=== PATIENT | female | born 1960 ===

== ENCOUNTER 2017-02-27 22:18 | Observation (INO) | payer BC ==
[2017-02-27 22:25] VITALS: RESP 16; O2SAT 99
--- NOTE | 2017-02-27 22:44 | ED PDOC ---
Syncope/Near Syncope/Dizzyness Time Seen by Provider: 02/27/17 22:28 Chief Complaint (Nursing): Dizziness/Lightheaded Chief Complaint (Provider): dizziness History Per: Patient History/Exam Limitations: no limitations Onset/Duration Of Symptoms: Hrs (x 1) Additional Complaint(s): Maricarmen Lomax is a 57 year old female, with a previous medical history of hypertension, hypothyroidism and kidney stones, who presents to the ED with complaints of dizziness secondary to stool falling on his head. Patient states he feels dizzy accompanied by neck pain. Patient reports no loss of consciousness, nausea, vomiting, paresthesia or peripheral neuropathy. PMD: [place] Past Medical History Reviewed: Historical Data, Nursing Documentation, Vital Signs Vital Signs: Last Vital Signs Temp 99.5 F 02/27/17 22:23 Pulse 105 H 02/27/17 22:23 Resp 16 02/27/17 22:23 BP 161/95 H 02/27/17 22:23 Pulse Ox 99 02/27/17 22:23 - Medical History PMH: Gastritis, HTN, Hypercholesterolemia, Hypothyroidism - Surgical History Surgical History: No Surg Hx - Family History Family History: States: Unknown Family Hx - Immunization History Hx Tetanus Toxoid Vaccination: Yes Hx Influenza Vaccination: Yes Hx Pneumococcal Vaccination: Yes - Home Medications Home Medications: Ambulatory Orders Medication Instructions Recorded Ciprofloxacin [Cipro] 500 mg PO BID 02/28/17 Cyclobenzaprine [Flexeril] 5 mg PO TID #20 tab 02/28/17 Dexlansoprazole [Dexilant] 60 mg PO DAILY 02/28/17 Ezetimibe [Zetia] 10 mg PO DAILY 02/28/17 Levothyroxine [Synthroid] 100 mcg PO QAM 02/28/17 Lisinopril [Zestril] 20 mg PO DAILY 02/28/17 Metoprolol Tartrate [Lopressor] 25 mg PO BID 02/28/17 Montelukast [Singulair] 10 mg PO HS 02/28/17 Potassium Citrate [Urocit-K] 15 meq PO BID 02/28/17 amLODIPine [Norvasc] 10 mg PO DAILY 02/28/17 - Allergies Allergies/Adverse Reactions: Allergies Allergy/AdvReac Type Severity Reaction Status Date / Time avocado Allergy RASH Verified 02/27/17 22:23 fosinopril sodium Allergy RASH Verified 02/27/17 22:23 [From Monopril] iron Allergy RASH Verified 02/27/17 22:23 pseudoephedrine HCl Allergy RASH Verified 02/27/17 22:23 [From Sudafed] shrimp Allergy RASH Verified 02/27/17 22:23 Review of Systems ROS Statement: Except As Marked, All Systems Reviewed And Found Negative Gastrointestinal: Negative for: Nausea, Vomiting Musculoskeletal: Positive for: Neck Pain Neurological: Positive for: Dizziness. Negative for: Numbness, Other (tingling ) Psych: Negative for: Other (LOC) Physical Exam - Reviewed Nursing Documentation Reviewed: Yes Vital Signs Reviewed: Yes - Physical Exam Appears: Positive for: Well, Non-toxic, No Acute Distress Head Exam: Positive for: ATRAUMATIC, NORMAL INSPECTION, NORMOCEPHALIC Skin: Positive for: Normal Color, Warm, Dry Eye Exam: Positive for: Normal appearance, EOMI, PERRL. Negative for: Nystagmus Neck: Positive for: Normal, Painless ROM, Supple Cardiovascular/Chest: Positive for: Regular Rate, Rhythm Respiratory: Positive for: CNT, Normal Breath Sounds Back: Positive for: Normal Inspection. Negative for: Vertebral Tenderness Extremity: Positive for: Normal ROM Neurologic/Psych: Positive for: Alert, Oriented (x 3). Negative for: Motor/ Sensory Deficits - Laboratory Results Result Diagrams: 02/28/17 00:59 02/28/17 00:59 - ECG O2 Sat by Pulse Oximetry: 99 (RA) Pulse Ox Interpretation: Normal Medical Decision Making Medical Decision Making: Initial Plan: * CT cervical neck w/o contrast * CT head w/o contrast * reevaluation Scribe Attestation: Documented by Jerica Pedraza, acting as a scribe for Eusebio Johnson MD Provider Scribe Attestation: All medical record entries made by the Scribe were at my direction and personally dictated by me. I have reviewed the chart and agree that the record accurately reflects my personal performance of the history, physical exam, medical decision making, and the department course for this patient. I have also personally directed, reviewed, and agree with the discharge instructions and disposition. Disposition - Clinical Impression Clinical Impression: Dizziness, Head injury - Patient ED Disposition Is Patient to be Admitted: Transfer of Care - Disposition Disposition: Transfer of Care Disposition Time: 15:00 Condition: STABLE Patient Signed Over To: Reji Lopez
--- NOTE | 2017-02-27 23:50 | CT ---
EXAM: CT Head Without Intravenous Contrast CLINICAL HISTORY: 57 years old, female; Injury or trauma; Fall; Initial encounter; Concussion / head injury; Additional info: R/O bleed TECHNIQUE: Axial computed tomography images of the head/brain without intravenous contrast. This CT exam was performed using one or more of the following dose reduction techniques: automated exposure control, adjustment of the mA and/or kV according to patient size, and/or use of iterative reconstruction technique. Coronal and sagittal reformatted images were created and reviewed. COMPARISON: No relevant prior studies available. FINDINGS: Brain: No acute intracranial hemorrhage. No significant white matter disease. No edema. Ventricles: No significant ventriculomegaly. Bones: No acute displaced fracture. Sinuses: Unremarkable as visualized. No acute sinusitis. Mastoid air cells: Unremarkable as visualized. No mastoid effusion. IMPRESSION: No acute intracranial hemorrhage, or suspicious mass effect.
--- NOTE | 2017-02-28 00:15 | ED PDOC ---
- Laboratory Results Result Diagrams: 02/28/17 00:59 02/28/17 00:59 - ECG O2 Sat by Pulse Oximetry: 99 (RA) Medical Decision Making Medical Decision Making: Patient s/o from Dr. Johnson at [address] 2350: CT head impression: No acute intracranial hemorrhage, or suspicious mass effect. 0018: CT c-spine impression: No acute fracture is identified. Odontoid-lateral mass asymmetry is detected, for which dedicated MRI is suggested to exclude a ligamentous injury. Additional finding within the vertebral body of T2, for which dedicated ( nonemergent) contrast enhanced MRI is suggested. Will put patient in c-collar for precaution and ED obs pending MRI in the AM. Will call Andres (head of radiology) stat due to ligamentous injury with possible cervical fracture as per CT. Patient declines Morphine. States it makes her sick. ordered toradol instread 0300 pt sleeping in NAD Patient s/o to Dr. Khoury at 0700 pending MRI. Scribe Attestation: Documented by Guillermo Mercado acting as a scribe for Marisol Eldridge MD. Provider Scribe Attestation: All medical record entries made by the Scribe were at my direction and personally dictated by me. I have reviewed the chart and agree that the record accurately reflects my personal performance of the history, physical exam, medical decision making, and the department course for this patient. I have also personally directed, reviewed, and agree with the discharge instructions and disposition. Disposition - Clinical Impression Clinical Impression: Dizziness - POA Present On Arrival: None - Disposition Disposition: Transfer of Care Disposition Time: 07:00 Condition: STABLE Patient Signed Over To: Damian Khoury Handoff Comments: pending MRI ED OBSERVATION Date of observation admission: 02/28/17 Time of observation admission: 00:23 - Observation admission statement Patient is being placed in observation because:: pending MRI in AM
--- NOTE | 2017-02-28 00:18 | CT ---
EXAM: CT Cervical Spine Without Intravenous Contrast CLINICAL HISTORY: 57 years old, female; Injury or trauma; Fall; Initial encounter; Concussion /head injury TECHNIQUE: Axial computed tomography images of the cervical spine without intravenous contrast. This CT exam was performed using one or more of the following dose reduction techniques: automated exposure control, adjustment of the mA and/or kV according to patient size, and/or use of iterative reconstruction technique. Coronal and sagittal reformatted images were created and reviewed. COMPARISON: No relevant prior studies available. FINDINGS: Vertebrae: No acute fracture. Odontoid-lateral mass asymmetry. Within the posterior column of the T2 vertebral body, to the left of midline is a subcentimeter focus of decreased attenuation. No additional lytic or blastic lesions are detected. Alignment: Preservation of the normal curvature of the cervical spine. Discs/spinal canal/neural foramina: No acute findings. Soft tissues: Symmetric Lung apices: The visualized lung apices are clear. IMPRESSION: No acute fracture is identified. Odontoid-lateral mass asymmetry is detected, for which dedicated MRI is suggested to exclude a ligamentous injury. Additional finding within the vertebral body of T2, for which dedicated (nonemergent) contrast enhanced MRI is suggested. THIS REPORT CONTAINS FINDINGS THAT MAY BE CRITICAL TO PATIENT CARE. The findings were verbally communicated via telephone conference with Dr Johnson at 12:17 AM EDT on 02/28/2017. The findings were acknowledged and understood.
[2017-02-28 01:03] LABS: BASO # 0.1 K/uL (0.0-0.2); BASO % 1.4 % (0.0-2.0); EOS # 0.1 K/uL (0.0-0.7); EOS % 0.9 % (0.0-4.0); HEMATOCRIT 41.1 % (34.0-47.0); LYMPH # 1.8 K/uL (1.0-4.3); LYMPH % 20.7 % (20.0-40.0); MEAN CELL VOLUME 86.5 fl (81.0-99.0); MEAN CORPUSCULAR HEMOGLOBIN 28.6 pg (27.0-31.0); MEAN PLATELET VOLUME 7.6 fl (7.2-11.7); MONO # 0.5 K/uL (0.0-0.8); MONO % 5.5 % (0.0-10.0); NEUT # 6.2 K/uL (1.8-7.0); NEUT % 71.5 % (50.0-75.0); NRBC % 0.1 % (0.0-0.0); RED CELL DISTRIBUTION WIDTH 13.1 % (11.5-14.5); WHITE BLOOD COUNT 8.7 K/uL (4.8-10.8)
[2017-02-28 01:10] LABS: ALB/GLOB RATIO 1.3 (1.0-2.1); ALKALINE PHOSPHATASE 110 U/L (38-126); ALT/SGPT 44 U/L (9-52); AST/SGOT 28 U/L (14-36); BILIRUBIN,TOTAL 0.4 mg/dl (0.2-1.3); BLOOD UREA NITROGEN 11 mg/dl (7-17); CALCIUM 9.7 mg/dL (8.4-10.2); CARBON DIOXIDE 22 mmol/L (22-30); CHLORIDE 106 mmol/L (98-107); GFR AFRICAN-AMERICAN > 60; GLUCOSE,RANDOM 121 mg/dL (65-105); POTASSIUM 4.3 MMOL/L (3.6-5.0); SODIUM 140 mmol/l (132-148); TOTAL PROTEIN 8.4 G/DL (6.3-8.2)
--- NOTE | 2017-02-28 07:22 | ED PDOC ---
- Laboratory Results Result Diagrams: 02/28/17 00:59 02/28/17 00:59 - ECG O2 Sat by Pulse Oximetry: 99 (RA) Pulse Ox Interpretation: Normal Medical Decision Making Medical Decision Makin:00 Patient transferred over to provider by Dr. Eldridge. Pending MRI. Initial Plan: * Toradol 30 mg IVP * Ativan 0.5 mg IVP * Morphine 2 mg IVP * Zofran 4 mg IVP * Reevaluation 09:50 Provider removed patient's collar. Patient is able to move all extremities equally with intact sensations. MRI reports no ligamentous instability. 09:55 Upon provider reevaluation patient is feeling better, is medically stable, and requires no further treatment in the emergency department at this time. Patient will be prescribed home with a prescription for Flexeril 5 mg. Counseling was provided and all questions were answered regarding diagnosis and need for follow up with orthopedic and primary medical doctor. Patient is in agreement with provider's discharge plan and was prompted to return if symptoms persist or worsen. Clinical Impression: Head injury and dizziness Scribe Attestation: Documented by Rick Caal, acting as a scribe for Damian Khoury MD. Provider Scribe Attestation: All medical record entries made by the Scribe were at my direction and personally dictated by me. I have reviewed the chart and agree that the record accurately reflects my personal performance of the history, physical exam, medical decision making, and the department course for this patient. I have also personally directed, reviewed, and agree with the discharge instructions Disposition Counseled Patient/Family Regarding: Diagnosis, Need For Followup, Rx Given - Clinical Impression Clinical Impression: Dizziness, Head injury - POA Present On Arrival: None - Disposition Disposition: Routine/Home Disposition Time: 09:55 Condition: STABLE
--- NOTE | 2017-02-28 09:32 | MRI ---
PROCEDURE: MR CERVICAL SPINE WITHOUT CONTRAST HISTORY: Rule out fracture COMPARISON: CT cervical spine without contrast from 02/27/2017. TECHNIQUE: Multiecho multiplanar sequences were performed through the cervical spine without the use of intravenous contrast. FINDINGS: There is normal alignment of the cervical vertebral bodies. Cervical lordosis is maintained. Vertebral bodies are normal in height. There is no acute fracture or traumatic anterior listhesis. The craniocervical junction is normal. The atlantoaxial joint is normal. Bone marrow signal is within normal limits. There is no evidence of abnormal signal in the ligaments at C1-C2. The odontoid -lateral mass distance is within normal limits. The cervical cord is normal in contour, caliber and has normal intrinsic signal. The paraspinous soft tissues are normal. C2-C3: No disc herniation, spinal canal stenosis or neural foraminal narrowing. C3-C4: No disc herniation, spinal canal stenosis or neural foraminal narrowing. C4-C5: Broad-based disc osteophyte complex and mild bilateral facet arthropathy without neural foraminal or spinal canal stenosis. C5-C6: Broad-based disc osteophyte complex and asymmetric right uncovertebral joint hypertrophy in combination with mild facet arthropathy result in moderate bilateral neural foraminal stenosis, worse on the right. No spinal canal stenosis. C6-C7: No disc herniation, spinal canal stenosis or neural foraminal narrowing. C7-T1: No disc herniation, spinal canal stenosis or neural foraminal narrowing. OTHER FINDINGS: The questioned subcentimeter T1 and T2 hyperintense and STIR hypointense round lesion in the posterior inferior T2 vertebral body to the left is most compatible with focal fatty marrow. IMPRESSION: No acute fracture or traumatic anterior listhesis. Specifically, no evidence of atlanto dental ligament injury.
[2017-02-28 09:35] VITALS: BP 132/72; PULSE 64; TEMP 98.1
== END 2017-02-28 10:34 | disposition home or self-care (01) ==
LOC: H.ER 22:18 → H.EROBSV 02-28 00:23
PROVIDERS: ADMIT Emergency Medicine; ATTEND Emergency Medicine
DX: S09.90XA Unspecified injury of head, initial encounter (principal); W20.8XXA Other cause of strike by thrown, projected or falling object, initial encounter; Y93.9 Activity, unspecified; Y92.9 Unspecified place or not applicable; Y99.9 Unspecified external cause status; E03.9 Hypothyroidism, unspecified; E78.00 Pure hypercholesterolemia, unspecified; I10 Essential (primary) hypertension; Z87.442 Personal history of urinary calculi; Z91.013 Allergy to seafood; Z91.018 Allergy to other foods; K29.70 Gastritis, unspecified, without bleeding
CPT/HCPCS: 70450; 72125; 72141; 80053; 85025; 96374; 96376; 99284; G0378; J1885